=== PATIENT | female | born 1980 | race Caucasian/White ===

== ENCOUNTER 2017-01-27 22:03 | Inpatient (IN) | payer OTHER ==
[2017-01-27 22:21] LABS: BASOPHIL 1.1 % (0-2); EOSINOPHIL 3.1 % (0-5); HCT 37.8 % (37.0-47.0); HGB 12.1 g/dl (12.5-16.0); MCH 27.9 pg (25.0-31.0); MCV 87.1 fL (78.0-100.0); MONOCYTE 7.9 % (0-12); MPV 9.6 fL (6.0-9.5); NEUTROPHIL 57.9 % (41-80); PLT 359 K/uL (150-400); RBC 4.34 M/uL (4.20-5.40); RDW 13.7 % (11.5-14.0); WBC 10.6 K/uL (4.0-10.5)
[2017-01-27 22:25] LABS: BILIRUBIN NEGATIVE (NEGATIVE); BLOOD TRACE-INTACT Ery/uL (NEGATIVE); CLARITY CLEAR (CLEAR); COLOR YELLOW (YELLOW); GLUCOSE (U) NORMAL (NORMAL); KETONE (U) TRACE mg/dL (NEGATIVE); LEUKOCYTES NEGATIVE Leu/uL (NEGATIVE); NITRITE NEGATIVE (NEGATIVE); PROTEIN NEGATIVE (NEGATIVE); SPECIFIC GRAVITY 1.025 (1.001-1.030); UROBILINOGEN 0.2 mg/dL (0.2-1.0)
[2017-01-27 22:31] LABS: LACTIC ACID 1.8 mmol/L (0.5-2.2)
[2017-01-27 22:32] LABS: BACTERIA TRACE; MUCOUS LARGE; URINARY WBC RARE
[2017-01-27 22:35] LABS: AMPHETAMINES POSITIVE (NEGATIVE); BARBITURATES NEGATIVE (NEGATIVE); BENZODIAZEPINES POSITIVE (NEGATIVE); COCAINE NEGATIVE (NEGATIVE); MARIJUANA (THC) NEGATIVE (NEGATIVE); METHADONE NEGATIVE (NEGATIVE); TRICYCLIC ANTIDEPRESSANT POSITIVE (NEGATIVE)
[2017-01-27 22:36] LABS: ALBUMIN 3.8 g/dL (3.5-5.0); BILIRUBIN - TOTAL 0.2 mg/dL (0.1-1.0); CREATININE 1.2 mg/dL (0.5-1.0); POTASSIUM 3.8 mmol/L (3.5-5.1); TOTAL PROTEIN 6.8 g/dL (6.4-8.3)
[2017-01-27 22:37] LABS: ACETAMINOPHEN (TYLENOL) < 5.0 ug/mL (10.0-30.0); ALCOHOL (ETOH) MEDICAL NONE DETECTED; SALICYLATE < 6 ug/mL (0-300)
--- NOTE | 2017-01-28 04:05 | NUR ---
SPOKE W/DEXTER W/POISON CONTROL VIA PHONE. INSTRUCTION RCD RE: OVERDOSE W/THIS RN VERBALIZING UNDERSTANDING. WILL MONITOR THE PT CLOSELY.
[2017-01-28 04:58] LABS: BASOPHIL 0.7 % (0-2); EOSINOPHIL 3.5 % (0-5); HCT 36.7 % (37.0-47.0); HGB 11.5 g/dl (12.5-16.0); LYMPHOCYTE 29.2 % (15-48); MCH 27.6 pg (25.0-31.0); MCHC 31.3 g/dL (32.0-36.0); MONOCYTE 7.7 % (0-12); MPV 9.7 fL (6.0-9.5); NEUTROPHIL 58.9 % (41-80); PLT 357 K/uL (150-400); RBC 4.17 M/uL (4.20-5.40); WBC 9.9 K/uL (4.0-10.5)
[2017-01-28 05:15] LABS: TROPONIN T < 0.010 ng/mL
[2017-01-28 05:17] LABS: ALBUMIN 3.8 g/dL (3.5-5.0); BILIRUBIN - TOTAL 0.3 mg/dL (0.1-1.0); CREATININE 1.2 mg/dL (0.5-1.0); TOTAL PROTEIN 6.8 g/dL (6.4-8.3)
--- NOTE | 2017-01-28 13:07 | NUR ---
SRINIVASA REQUESTING TO GO SMOKE. INFORMED PATIENT THAT POLICY STATED SHE COULD NOT LEAVE THE UNIT DUE TO BEING ON SUICIDE PRECAUTIONS. PATIENT STATES SHE IS GOING TO SMOKE. OFFERED PATIENT NICOTENE PATCH. PATIENT REFUSED NICOTINE PATCH. PATIENT INFORMED POLICE WOULD BE CALLED IF PATIENT LEFT THE UNIT. PATIENT STATES TO GO AHEAD AND CALL THEM BECAUSE SHE WAS GOING OUTSIDE. SECURITY UP AT DESK. SECURITY INFORMED OF SITUATION. PATIENT AMBULATED OFF UNIT. SECURITY FOLLOWED PATIENT OUTSIDE. POLICE CALLED AND INFORMED OF PATIENT LEAVING UNIT. NOTIFIED OF PATIENT LEAVING UNIT.
--- NOTE | 2017-01-28 19:50 | NUR ---
SABINA W/[facility] W/[facility]: [facility] TO SEE PT TOMORROW 01/29/17
[2017-01-29] MEDS ORDERED: SYNTHROID50 MCG PO (13:04)
[2017-01-29] MEDS ORDERED: REQUIP0.5 MG PO (13:04)
[2017-01-29] MEDS ORDERED: NORVASC 10MG TA10 MG PO (13:04)
[2017-01-29] MEDS ORDERED: ZOLOFT100 MG PO (13:04)
--- NOTE | 2017-01-29 13:12 | NUR ---
01/29/17 0940 - PATIENT ATTEMPTING TO BOARD ELEVATOR AND LEAVE HOSPITAL TO SMOKE. DISCUSSED OUR SMOKEFREE CAMPUS DESIGNATION,70-HOUR OLD, AND 1:1 OBSERVATION STATUS. PATIENT BECAME COMBATIVE. PROFANITY TO INCLUDE "FUCKING DICKHEAD" AND "FUCKING ASSHOLE". DULCE AMADOR CALLED AND SECURITY ARRIVED TO ATTEMPT ENCOURAGEMENT TO RETURN TO PATIENT ROOM. DR. SANTOS APPROACHED AND REQUESTED STAFF TO LEAVE PATIENT SHE ESCORTED THEM TO PATIENT'S CAR. DR. SANTOS INSTRUCTED SECURITY TO OBSERVE PATIENT AND TOOK LICENSE PLATE NUMBER. I OBJECTED AND DISCUSSED CONCERNS WITH QUALITY/RISK AND EFFICIENCY MINER BLASTING. I EXPLAINED OUR POLICY AND NEED TO NOTIFY POLICE TO DR. SANTOS. PATIENT ABORTED ATTEMPT TO SMOKE AND RETURNED TO ROOM. 1308 - [facility] EVALUATION COMPLETED AND RECOMMENDATION FOR IMPATIENT TREATMENT RECEIVED WITH BED ASSIGNMENT. PATIENT AGAIN ATTEMPTED TO LEAVE AND SECURITY CALLED. INSTRUCTED SECURITY TO NOTIFY POLICE IF PATIENT WOULD NOT RETURN. DR. SANTOS AND [facility] MANAGER PACKAGE MADE AWARE OF CURRENT STATUS.
--- NOTE | 2017-01-29 14:29 | NUR ---
WHILE ATTEMPTING TO TRASFER PT TO [facility] SHE STATED SHE WAS NOT GOING TO GET ON THE EMS STRETCHER TO GO. PT IS UNDER A 72 HOUR HOLD SO IT WAS DECIDED TO CALL THE POLICE. WHEN [facility] CALLED THEY STATED THEY COULD NOT DO ANYTHING ABOUT THIS AND WOULD NOT COME TO THE HOSPITAL
== END 2017-01-29 14:00 | DRG 917 ==
LOC: FER 22:03 → FICU 01-28 01:02
PROVIDERS: Emergency Medicine; ADMIT Internal Medicine
DX: T42.8X2A Poisoning by antiparkinsonism drugs and other central muscle-tone depressants, intentional self-harm, initial encounter (principal); G92 Toxic encephalopathy; N17.9 Acute kidney failure, unspecified; R45.851 Suicidal ideations; Z68.43 Body mass index [BMI] 50.0-59.9, adult; I10 Essential (primary) hypertension; F32.9 Major depressive disorder, single episode, unspecified; E03.9 Hypothyroidism, unspecified; M54.9 Dorsalgia, unspecified; M54.2 Cervicalgia; G89.29 Other chronic pain; F17.210 Nicotine dependence, cigarettes, uncomplicated; R00.1 Bradycardia, unspecified; R09.02 Hypoxemia; E66.01 Morbid (severe) obesity due to excess calories; F19.10 Other psychoactive substance abuse, uncomplicated; Y92.481 Parking lot as the place of occurrence of the external cause; Z88.8 Allergy status to other drugs, medicaments and biological substances
CPT/HCPCS: 36415; 36600; 70450; 71010; 80053; 80305; 81001; 82550; 82553; 82803; 83605; 83690; 84484; 85025; 93005; 94010; C9113; G0480; J2310